=== PATIENT | female | born 1960 | race Caucasian/White ===

== ENCOUNTER 2019-11-29 22:10 | Inpatient (IN) | payer OTHER ==
--- NOTE | 2019-11-29 22:19 | ED ---
Abdominal Pain/Female - HPI Summary HPI Summary: 59 y/o presented to [facility] by [facility] complaining of abd pain that began this morning, for which she has seen another provider earlier today.She has had no vomiting and notes decreased urine output. She notes that she has been given morphine that has helped her pain. She drank PO contrast at 2100. Pt has Hx of heart palpitations and Afib. - History of Current Complaint Chief Complaint: EDAbdPain Stated Complaint: ABD PAIN PER EMS Time Seen by Provider: 11/29/19 22:15 Hx Obtained From: Patient, EMS Onset/Duration: Lasting Hours, Still Present Severity Currently: Moderate Pain Intensity: 5 Pain Scale Used: 0-10 Numeric Alleviating Factor(s): Other: - morphine Allergies/Adverse Reactions: Allergies Allergy/AdvReac Type Severity Reaction Status Date / Time Penicillins Allergy Anaphylatic Verified 11/29/19 22:16 Shock Home Medications: Home Medications Albuterol HFA INHALER* PRN 11/30/19 [History] Alendronate Sodium 70 mg PO WEEKLY 11/30/19 [History Confirmed 11/30/19] Aspirin 325 mg PO DAILY 11/30/19 [History Confirmed 11/30/19] Metoprolol Tartrate 12.5 mg PO BID 11/30/19 [History Confirmed 11/30/19] PMH/Surg Hx/FS Hx/Imm Hx Cardiovascular History: Reports: Hx Atrial Fibrillation, Other Cardiovascular Problems/Disorders - palpitations Sensory History: Denies: Hx Legally Blind, Hx Deafness Opthamlomology History: Denies: Hx Legally Blind EENT History: Denies: Hx Deafness Infectious Disease History: No Infectious Disease History: Denies: Traveled Outside the [place] in Last 30 Days - Family History Known Family History: Positive: Hypertension - sister Negative: Diabetes - Social History Occupation: Employed Full-time Alcohol Use: Daily Hx Tobacco Use: Yes Type: Cigarettes Review of Systems Positive: Abdominal Pain. Negative: Vomiting Positive: other - decreased urine output All Other Systems Reviewed And Are Negative: Yes Physical Exam - Summary Physical Exam Summary: Appearance: Cachectic, lying in bed comfortably, no acute distress Skin: Warm, dry, no obvious rash Eyes: sclera anicteric, no conjunctival pallor ENT: mucous membranes moist, pharynx appears normal Neck: Supple, nontender Respiratory: Clear to auscultation, no signs of respiratory distress Cardiovascular: Normal S1, S2. No murmurs. Normal distal pulses in tibial and radial bilaterally. Abdomen: Soft, diffuse tenderness with no guard or rebound, normal active bowel sounds present Musculoskeletal: Normal, Strength/ROM Intact Neurological: A&Ox3, awake and alert, mentation is normal, speech is fluent and appropriate Psychiatric: affect is normal, does not appear anxious or depressed Triage Information Reviewed: Yes Vital Signs On Initial Exam: Initial Vitals Temp Pulse Resp BP Pulse Ox 97.9 F 88 16 134/91 91 11/29/19 22:16 11/29/19 22:16 11/29/19 22:16 11/29/19 22:16 11/29/19 22:16 Vital Signs Reviewed: Yes Procedures - Sedation Patient Received Moderate/Deep Sedation with Procedure: No Diagnostics - Vital Signs Vital Signs Temp Pulse Resp BP Pulse Ox 11/29/19 22:16 97.9 F 88 16 134/91 91 - Laboratory Result Diagrams: 12/01/19 06:04 12/01/19 06:04 Lab Statement: Any lab studies that have been ordered have been reviewed, and results considered in the medical decision making process. - CT abd/pel CT Interpretation Completed By: Radiologist Summary of CT Findings: IMPRESSION: Cecal volvulus. This report was reviewed by the ED physician. Abdominal Pain Fem Course/Dx - Course Course Of Treatment: 59 y/o presented [facility] complaining of abd pain that began this morning, for which she has seen another provider earlier today.She has had no vomiting and notes decreased urine output. She notes that she has been given morphine that has helped her pain. Exam showed diffuse abdominal tenderness. CT abd/pel showed cacal volvulus. Pt case was discussed with Dr. Child and Dr. Vidal, who request the pt to be admitted for surgery. Pt was given 500mg IVPB Levaquin, 500mg IVPB Flagyl, and 2L IV NaCl. Pt case was discussed with Dr. Deal. Pt was diagnosed with cecal volvulus and admitted to [facility]. - Diagnoses Provider Diagnoses: Cecal volvulus - Provider Notifications Discussed Care Of Patient With: Kendall Child Time Discussed With Above Provider: 22:40 Instructed by Provider To: Other - Pt case was discussed with Dr. Child, who recommends a delayed CT scan and asks that the ED physician check in if there is a surgical diagnosis. At 0140 Dr. Vidal stated that the pt has a cecal volvulus and will need surgery. At 0144 Dr. Child asked that the hospitalist admit the pt. At 0350 Dr. Deal admitted the pt. Discharge ED - Sign-Out/Discharge Documenting (check all that apply): Patient Departure - admit - Discharge Plan Condition: Good Disposition: ADMITTED TO [facility] - Billing Disposition and Condition Condition: GOOD Disposition: Admitted to [facility] - Attestation Statements Document Initiated by Yanira: Yes Documenting Scribe: Dany Lopez Provider For Whom Yanira is Documenting (Include Credential): Jeferson Belcher MD Scribe Attestation: Dany Maradiaga scribed for Jeferson Belcher MD on 12/02/19 at 0109. Scribe Documentation Reviewed: Yes Provider Attestation: The documentation as recorded by the Dany mackey accurately reflects the service I personally performed and the decisions made by Jeferson ma MD Status of Scribe Document: Viewed
[2019-11-30] MEDS ORDERED: Morphine 4 MG/ML VIAL (1 ml) 4 MG/ML VIAL ONE (01:52)
[2019-11-30] MEDS ORDERED: Levofloxacin 500 MG IVPREMIX(* 500 MG/100 ML BAG IVPB ONE ×2 (01:58→03:27)
[2019-11-30] MEDS ORDERED: metroNIDAZOLE IV 500 MG/100ML* 500 MG/100 ML BAG IVPB ONE (01:58)
[2019-11-30] MEDS: NS 0.9% 1000 ML** 2,000 ML IV ONE ×2 (02:06→03:34)
[2019-11-30] MEDS: Morphine 4 MG/ML VIAL (1 ml) 4 MG/ML VIAL IV PRN ×3 (02:06→06:21)
--- NOTE | 2019-11-30 04:11 | HP ---
History of Present Illness - History of Present Illness Reason for Visit: Abdominal Pain for 1 day History of Present Illness: Aleida Alanis is a 59 y/o female with history of COPD, transferred from [facility] for acute onset of abdominal pain since this morning. She was about to go for work when the abdominal pain started, she described as diffuse abdominal pain, 5/10, constant. She had not been passing gas or stool since then , she denied vomiting or nausea or fever. She was in her usual health until today, she had regular bowel movement though she recalled she started to have a little bit diarrhea last night. In [place] and ED, she was given IV morphine and zofran. Also she was given IV Levaquin+flagyl. - Past Medical History Past Medical History: 1. COPD 2. Heart palpitation following with leasing associate Dr. Mcclellan in [place]. - Past Surgical History Past Surgical History: none - Past Family History Past Family History: Father at 70s, unknown medical history. Mother had open heart surgery at 60s. no other significant family history - Past Social History Past Social History: Current smoker, 1PPD since 17 years old. occasional Etoh use, a couple of beer daily basis, no ETOH overuse. No drug use. 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 Full code Medications: Albuterol HFA INHALER* PRN 11/30/19 [History] Alendronate Sodium 70 mg PO WEEKLY 11/30/19 [History Confirmed 11/30/19] Aspirin 325 mg PO DAILY 11/30/19 [History Confirmed 11/30/19] Metoprolol Tartrate 12.5 mg PO DAILY 11/30/19 [History Confirmed 11/30/19] Allergies/Adverse Reactions: Allergies Allergy/AdvReac Type Severity Reaction Status Date / Time Penicillins Allergy Anaphylatic Verified 11/29/19 22:16 Shock Review of Systems - Review of Systems Constitutional: Negative: Fever, Chills, Sweats, Weakness, Malaise, Other Eyes: Negative: Pain, Vision Change, Conjunctivae Inflammation, Eyelid Inflammation, Redness, Other ENT: Negative: Ear Pain, Ear Discharge, Nose Pain, Nose Discharge, Nose Congestion, Mouth Pain, Mouth Swelling, Throat Pain, Throat Swelling, Other Respiratory: Negative: Cough, Dry, Shortness of Breath, Hemoptysis, SOB with Excertion, Pleuritic Pain, Sputum, Wheezing Cardiovascular: Negative: Chest Pain, Palpitations, Orthopnea, Paroxysmal Noc. Dyspnea, Edema, Light Headedness, Other Gastrointestinal: Positive: Abdominal Pain Genitourinary: Negative: Dysuria, Frequency, Incontinence, Hematuria, Retention , Other Musculoskeletal: Negative: Neck Pain, Shoulder Pain, Arm Pain, Back Pain, Hand Pain, Leg Pain, Foot Pain, Other Skin: Negative: Rash, Lesions, Neftaly, Bruising, Other Neurological: Negative: Weakness, Numbness, Incoordination, Change in Speech, Confusion, Seizures, Other Exam Vital Signs: Vital Signs (72 hours) 11/29/19 11/30/19 11/30/19 22:16 00:16 00:36 Temperature 97.9 F Pulse Rate 88 78 78 Respiratory 16 20 17 Rate Blood Pressure 134/91 133/82 (mmHg) O2 Sat by Pulse 91 92 95 Oximetry 11/30/19 11/30/19 11/30/19 00:51 01:00 01:17 Temperature Pulse Rate 71 88 72 Respiratory 15 17 17 Rate Blood Pressure 127/72 136/68 (mmHg) O2 Sat by Pulse 96 97 97 Oximetry 11/30/19 11/30/19 11/30/19 01:47 02:00 02:06 Temperature Pulse Rate 82 88 Respiratory 16 19 22 Rate Blood Pressure 150/94 (mmHg) O2 Sat by Pulse 96 94 Oximetry 11/30/19 11/30/19 11/30/19 02:47 03:00 03:17 Temperature Pulse Rate 89 73 67 Respiratory 16 14 20 Rate Blood Pressure 132/67 131/87 (mmHg) O2 Sat by Pulse 98 98 98 Oximetry Exam: Appearance: comfortable, in moderate pain for abdomen Eyes: sclera anicteric, no conjunctival pallor ENT: mucous membranes moist, pharynx not erythematous, tonsils not enlarged, no exudates Respiratory: clear on auscultation, no signs of respiratory distress Cardiovascular: Normal S1, S2. No murmurs Abdomen: Soft, non tender, BS+ Extremity: pulse well palpated, no calf tenderness Skin: no rashes Neurological: A&Ox3, awake and alert, mentation is normal, speech is fluent and appropriate Psychiatric: affect is normal, does not appear anxious or depressed Additional Lab and Data: cbc: t 11.27, hB 14.2, pLT 268 BMP: Na 133, k 3.9, cO2 29, AG 11 Diagnostic Imaging: CTAP: cecal volvulus. markedly distended cecum filled with predominantly gas measuring ufp to 9cm in diameter. a twisting of the colonic wall and ileal colonic mesenteric vesslels in right lower quandrant of abdomen Assessment/Plan - Assessment/Plan Assessment: Aleida Alanis is a 59 y/o female with history of COPD, palpitation transferred from [facility] for acute onset of abdominal pain since this morning, found to have cecal volvulus in CTAP with mild leukocytosis. Surgical team was consulted in ED, we are admitting the patient for further management of cecal volvulus. Differential for the cause of volvulus including idiopathic, ischemic (less likely) bowel. Plan: 1. Cecal volvulus - NPO - IV fluid - zofran prn - if worsening pain, place ngt - pain control with morphine prn - empirical antibiotic coverage with iv cipro and flagyl in view of leukocytosis - surgical team was consulted in ED, will need early surgical intervention - According to RCRI, she scores 1 in operative risk, which indicates 30% of , FL or cardiac risk. She could proceed with surgery with the above mentioned risk. 2. COPD - not on exacerbation - continue current management 3. Tobacco use - put on nicotine patch - smoking cessation 4. DVT prophylaxis - start sc Lovenox this afternoon post op Attestation Documenting Resident: Vera Cerna Supervising Physician: Clare Deal Attestation: This service has been performed in part by a resident under the direction of a teaching physician.I, Clare Deal, performed the service, or was physically present during the critical, or martines portions of the service, furnished by the resident. I participated in the management of the patient.
[2019-11-30] MEDS ORDERED: Morphine INJ* 4 MG/ML 1 ML SYRINGE (NEW SYRINGE VERSION) IV PRN (07:59)
[2019-11-30] MEDS: Nicotine PATCH 21 MG/24 HR* PATCH TRANSDERM SCH (07:59)
[2019-11-30] MEDS ORDERED: NS 0.9% 1000 ML** 1,000 ML IV SCH (08:00)
[2019-11-30] MEDS ORDERED: Influenza VAC *QUAD* 2019-20* 0.5 ML SYRINGE IM ONE (09:00)
[2019-11-30] MEDS ORDERED: Albuterol 2.5 MG/3 ML NEB.SOL* (0.083%) INH PRN (09:46)
--- NOTE | 2019-11-30 09:48 | PN ---
Subjective Date of Service: 11/30/19 Interval History: Pt is feeling poorly currently. She still has not passed any gas. Her pain is coming back but not severe yet. 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 She uses O2 at bedtime, she does not know how many liters. Objective Active Medications: Enoxaparin Sodium (Lovenox(*)) 40 mg SUBCUT Q24H [facility] Ciprofloxacin/Dextrose (Cipro 400 Mg Ivpremix(*)) 400 mg in 200 mls @ 200 mls/ hr IVPB Q12H [facility]; Protocol Metronidazole/Sodium Chloride (Flagyl 250 Mg Ivpb*) 50 mls @ 50 mls/hr IVPB Q8H [facility] Sodium Chloride (Ns 0.9% 1000 Ml) 1,000 mls @ 100 mls/hr IV PER RATE [facility] Last Admin: 11/30/19 08:05 Dose: 100 mls/hr Influenza Virus Vaccine (Fluarix Quad 8958-5665 Syr) 0.5 ml IM .ONCE ONE Stop: 12/01/19 09:01 Morphine Sulfate (Morphine Inj (Syringe)*) 4 mg IV Q4H PRN PRN Reason: SEE COMMENTS Nicotine (Nicotine Patch 21 Mg/24 Hr*) 1 patch TRANSDERM DAILY@0800 [facility] Last Admin: 11/30/19 07:59 Dose: Not Given Pharmacy Profile Note (Nicotine Patch Removal Note*) 1 note FOLLOW UP 2100 [facility] Vital Signs - 8 hr 11/30/19 11/30/19 11/30/19 01:47 02:00 02:06 Temperature Pulse Rate 82 88 Respiratory 16 19 22 Rate Blood Pressure 150/94 (mmHg) O2 Sat by Pulse 96 94 Oximetry 11/30/19 11/30/19 11/30/19 02:47 03:00 03:17 Temperature Pulse Rate 89 73 67 Respiratory 16 14 20 Rate Blood Pressure 132/67 131/87 (mmHg) O2 Sat by Pulse 98 98 98 Oximetry 11/30/19 11/30/19 11/30/19 04:28 06:21 06:50 Temperature 97.6 F Pulse Rate 78 Respiratory 20 22 16 Rate Blood Pressure 149/77 (mmHg) O2 Sat by Pulse 95 Oximetry 11/30/19 11/30/19 07:59 08:01 Temperature 98.7 F Pulse Rate 83 Respiratory 18 15 Rate Blood Pressure 124/65 (mmHg) O2 Sat by Pulse 97 Oximetry Oxygen Devices in Use Now: Nasal Cannula - 4L-97% Appearance: Middle aged female who appears older than her stated age, sitting up in bed, NAD Eyes: No Scleral Icterus Ears/Nose/Mouth/Throat: Mucous Membranes Moist Respiratory: Symmetrical Chest Expansion and Respiratory Effort, Clear to Auscultation - diminished breath sounds throughout Cardiovascular: NL Sounds; No Murmurs; No JVD, RRR, No Edema Abdominal: - - BS+ soft, mildly distended, moderately tender Extremities: No Clubbing, Cyanosis Skin: No Nodules or Sclerosis Neurological: Alert and Oriented x 3 Additional Lab and Data: cbc: t 11.27, hB 14.2, pLT 268 BMP: Na 133, k 3.9, cO2 29, AG 11 Diagnostic Imaging: CTAP: cecal volvulus. markedly distended cecum filled with predominantly gas measuring ufp to 9cm in diameter. a twisting of the colonic wall and ileal colonic mesenteric vesslels in right lower quandrant of abdomen Assess/Plan/Problems-Billing Ms Alanis is a 59 yo F who has a h/o COPD and nocturnal O2 use who presented to [place] ER with c/o abdominal pain and no flatus and was found to have a cecal volvulus. - Patient Problems (1) Cecal volvulus Current Visit: Yes Status: Acute Code(s): K56.2 - VOLVULUS SNOMED Code(s) : 634193237 Comment: The patient has been seen by general surgery and plan is for the patient to go to the OR at noon today. Will continue prn morphine, zofran and IVF. In terms of cardiac risk the patient has an RCRI of 1 giving her a 6% 30- day risk of CO, cardiac arrest or . My biggest concern is that the patient has fairly significant COPD requiring supplemental O2 at night. She does become SOB with moderate activity. I mentioned that if she receives general anesthesia with intubation she may not be able to be extubated easily. She understands this risk. She is on low dose metoprolol tartrate twice daily (not sure the indication-possibly hypertension). Will change to IV metoprolol 2.5mg IV q6hr. Additionally she will be continued on cipro and flagyl for now. (2) COPD (chronic obstructive pulmonary disease) Current Visit: Yes Status: Acute Code(s): J44.9 - CHRONIC OBSTRUCTIVE PULMONARY DISEASE, UNSPECIFIED SNOMED Code(s): 25790421 Comment: Stable without exacerbation at this time. Will add prn nebs for SOB/ wheezing. (3) DVT prophylaxis Current Visit: Yes Status: Acute Code(s): Z29.9 - ENCOUNTER FOR PROPHYLACTIC MEASURES, UNSPECIFIED SNOMED Code(s): 519752138 Comment: on hold for OR- start lovenox when Ok'ed by surgery (4) Full code status Current Visit: Yes Status: Acute Code(s): Z78.9 - OTHER SPECIFIED HEALTH STATUS SNOMED Code(s): 387658621
[2019-11-30] MEDS: Metoprolol Tartrate IV* 1 MG/ML 5 ML VIAL IV SCH ×2 (10:20→18:38)
[2019-11-30] MEDS ORDERED: Ondansetron INJ* 2 MG/ML VIAL IV PRN ×2 (10:26→14:39)
--- NOTE | 2019-11-30 10:51 | CONSULT ---
Consult Consult: CC: abdominal pain HPI: 59 yo F with COPD, tachycardia, HTN presented to the [place] ED with a h/ o "stomach ache" that began at 4 am on 11/29. She had nausea, no vomiting. She has been having loose BMs. Pain became severe and when she went to the ED she required narcotics. She was transfered to [facility] after CT scan was done with concern for cecal volulus. She had repeat CT with contrast at [facility] and was indeed found to have cecal volvulus, was admitted to the Hospital service and surgical consult was requested. At present she reports ongoing abdominal pain. She does not report N/V. She does not recall last flatus. No F/C. 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 PE: Vital Signs Temp 97.6 F 11/30/19 06:50 Pulse 78 11/30/19 06:50 Resp 18 11/30/19 10:20 BP 149/77 11/30/19 06:50 Pulse Ox 95 11/30/19 06:50 Gen: NAD; thin F Abd: no scars; softly distended with mild tenderness; no peritoneal sx; no palpable hepatosplenomegaly. Ext: warm Lab from [place] reviewed. CT images reviewed. Impression: Cecal volvulus. Plan/recommendation: Right colectomy. Nature of the procedure, indications, risks, benefits, alternatives, option of no treatment discussed. We discussed expected hospitalization (3-5 days) and overall recovery (4-6 weeks). Risks explained including, not limited to: bleeding, infection, pain, scars, blood clots, pneumonia, respiratory failure, changes in bowel habits, and risk of anesthesia. All questions answered. She stated understanding and agreed to proceed. Keep NPO. Preop abx.
[2019-11-30] MEDS: metroNIDAZOLE IV 250 MG/50ML* 50 ML IVPB SCH ×2 (10:57→18:39)
[2019-11-30] MEDS ORDERED: Lidocaine 2% PF * 5 ML VIAL ONE (12:47)
[2019-11-30] MEDS ORDERED: Propofol* 10 MG/ML 20 ML BTL ONE (12:47)
[2019-11-30] MEDS ORDERED: Rocuronium* 10 MG/ML VIAL ONE (12:47)
[2019-11-30] MEDS ORDERED: Dexamethasone IV* 4 MG/ML 1 ML (4 MG) ONE (12:47)
[2019-11-30] MEDS ORDERED: Ondansetron INJ* 2 MG/ML VIAL ONE ×2 (12:47→15:53)
[2019-11-30] MEDS ORDERED: fentaNYL* 50 MCG/ML 5 ML VIAL (250 MCG VIAL) ONE (12:47)
[2019-11-30] MEDS ORDERED: KETAMINE HCL* 50 MG/ML 10 ML VIAL ONE (12:47)
[2019-11-30] MEDS ORDERED: Midazolam* 1 MG/ML 5 ML VIAL (5 MG) ONE (12:47)
[2019-11-30] MEDS ORDERED: Ketorolac INJ* 30 MG/ML 1 ML VIAL ONE (12:47)
[2019-11-30] MEDS ORDERED: Phenylephrine 10 MG/ML VIAL* 1 ML VIAL ONE (14:02)
[2019-11-30] MEDS ORDERED: Naloxone* 0.4 MG/ML 1 ML VIAL IV PRN (14:39)
[2019-11-30] MEDS ORDERED: Levalbuterol 0.63MG/3ML NEB* UNIT OF USE INH PRN (14:39)
[2019-11-30] MEDS ORDERED: HYDROmorphone INJ1* 1 MG/ML SYRINGE IV PRN (14:39)
[2019-11-30] MEDS ORDERED: fentaNYL* 50 MCG/ML 2 ML VIAL (100 MCG VIAL) IV PRN (14:39)
[2019-11-30] MEDS ORDERED: Bupivacaine 0.25% SDV* 30 ML ONE (14:40)
[2019-11-30] MEDS ORDERED: Levalbuterol HFA INHALER* 1 PUFF MDI ONE (14:41)
[2019-11-30] MEDS ORDERED: Sugammadex * 200 MG/2 ML VIAL IV PUSH ONE (14:47)
--- NOTE | 2019-11-30 15:21 | BRIEFOPN ---
Brief Operative/Procedure Note - Operation Details Pre-Op Diagnosis: Cecal volvulus Post-Op Diagnosis: Ceval volvulus Procedures: Right colectomy Surgeon(s)/Proceduralists: Dr. Child. Assist: HARIKA Maurer Anesthesia: GETA Estimated Blood Loss: <50cc Findings: As above Specimen(s)/Culture(s) Description: Right colon Complications: None
[2019-11-30] MEDS ORDERED: fentaNYL* 50 MCG/ML 2 ML VIAL (100 MCG VIAL) ONE (15:53)
[2019-11-30] MEDS ORDERED: Levalbuterol 0.63MG/3ML NEB* UNIT OF USE INH ONE (16:37)
[2019-11-30] MEDS: Enoxaparin(*) 40 MG/0.4 ML SYR SUBCUT SCH (18:51)
[2019-11-30] MEDS ORDERED: Acetaminophen TAB* 325 MG PO PRN (19:19)
[2019-11-30] MEDS ORDERED: oxyCODONE TAB* 5 MG TAB PO PRN (19:20)
[2019-11-30] MEDS ORDERED: LORazepam INJ* 2 MG/ML 1 ML VIAL IV PUSH SCH (20:00)
[2019-11-30] MEDS: Lactated Ringers 1000 ML Bag* 1,000 ML IV SCH (20:03)
[2019-11-30] MEDS: Nicotine Patch Removal NOTE FOLLOW UP SCH (21:36)
[2019-11-30] MEDS: Metoprolol Tartrate TAB* 25 MG PO SCH (21:44)
[2019-12-01] MEDS ORDERED: Ciprofloxacin 400MG IVPREMIX(* 400 MG/200 ML BAG IVPB SCH (03:30)
[2019-12-01 06:40] LABS: ABS Lymphocytes 1.1 10^3/ul (1.0-4.8); ABS Monocytes 0.8 10^3/ul (0-0.8); ABS Neutrophils 7.6 10^3/ul (1.5-7.7); Hematocrit 35 % (35-47); Hemoglobin 12.4 g/dL (12.0-16.0); Lymphocyte % 11.5 %; Mean Corpuscular HGB Conc 35 g/dL (31-36); Mean Corpuscular Hemoglobin 36 pg (27-31); Mean Corpuscular Volume 103 fL (80-97); Mean Platelet Volume 6.9 fL (7.4-10.4); Platelet Count 204 10^3/uL (150-450); Red Blood Count 3.44 10^6 /uL (3.70-4.87); Red Cell Distribution Width 13 % (10-15); White Blood Count 9.6 10^3/uL (3.5-10.8)
[2019-12-01 07:01] LABS: Albumin 3.3 g/dL (3.2-5.2); Albumin/Globulin Ratio 1.6 (1-3); BUN/Creatinine Ratio 11.1 (8-20); Calcium 7.9 mg/dL (8.6-10.3); EGFR African American 171.4 (>60); EGFR Non-African American 141.6 (>60); Globulin 2.1 g/dL (2-4); Potassium 3.6 mmol/L (3.5-5.0); Total Bilirubin 0.6 mg/dL (0.2-1.0); Total Protein 5.4 g/dL (6.4-8.9)
[2019-12-01] MEDS: Nicotine PATCH 21 MG/24 HR* PATCH TRANSDERM SCH (07:01)
[2019-12-01] MEDS: oxyCODONE/Acetamin 5/325 MG* TAB PO PRN ×4 (07:32→22:06)
--- NOTE | 2019-12-01 07:39 | PN ---
Subjective Date of Service: 12/01/19 Interval History: Pt is feeling ok but having more pain in her abdomen than she can tolerate without pain medication. She has not passed any gas/BM. She would like to get up to walk. She also feels like she needs to cough but is afraid to due to pain. Objective Active Medications: Acetaminophen (Tylenol Tab*) 650 mg PO Q4H PRN PRN Reason: MILD PAIN or TEMP > 100.4 Albuterol (Ventolin 2.5 Mg/3 Ml Neb.Alice*) 2.5 mg INH Q4H PRN PRN Reason: SOB/WHEEZING Enoxaparin Sodium (Lovenox(*)) 40 mg SUBCUT Q24H [facility] Last Admin: 11/30/19 18:51 Dose: 40 mg Folic Acid (Folvite Tab*) 1 mg PO DAILY [facility] Lactated Ringer's (Lactated Ringers 1000 Ml Bag*) 1,000 mls @ 83 mls/hr IV .PER RATE [facility] Last Admin: 11/30/19 20:03 Dose: 83 mls/hr Influenza Virus Vaccine (Fluarix Quad [id number] Syr) 0.5 ml IM .ONCE ONE Stop: 12/01/19 09:01 Lorazepam (Ativan Inj*) 0 - [address] mg IV PUSH .[facility] PROTOCOL [facility]; Protocol Metoprolol Tartrate (Lopressor Tab*) 12.5 mg PO Q12HR [facility] Last Admin: 11/30/19 21:44 Dose: 12.5 mg Morphine Sulfate (Morphine Inj (Syringe)*) 4 mg IV Q4H PRN PRN Reason: SEE COMMENTS Last Admin: 11/30/19 10:20 Dose: 4 mg Multivitamins/Minerals (Theragran/Minerals Tab*) 1 tab PO DAILY [facility] Nicotine (Nicotine Patch 21 Mg/24 Hr*) 1 patch TRANSDERM DAILY@0800 [facility] Last Admin: 12/01/19 07:01 Dose: Not Given Ondansetron HCl (Zofran Inj*) 4 mg IV Q6H PRN PRN Reason: NAUSEA/VOMITING Oxycodone HCl (Roxycodone Tab*) 5 mg PO Q4H PRN PRN Reason: PAIN - MODERATE Oxycodone/Acetaminophen (Percocet 5/325 Tab*) 2 tab PO Q4H PRN PRN Reason: PAIN - SEVERE Last Admin: 12/01/19 07:32 Dose: 2 tab Pharmacy Profile Note (Nicotine Patch Removal Note*) 1 note FOLLOW UP 2100 [facility] Last Admin: 11/30/19 21:36 Dose: Not Given Thiamine HCl (Vitamin B-1 Tab*) 100 mg PO DAILY [facility] Vital Signs - 8 hr 12/01/19 12/01/19 12/01/19 00:44 00:52 00:53 Temperature 98.3 F Pulse Rate 55 57 Respiratory 16 14 14 Rate Blood Pressure 106/59 (mmHg) O2 Sat by Pulse 95 96 Oximetry 12/01/19 12/01/19 12/01/19 03:03 05:54 05:56 Temperature 98.4 F 97.9 F Pulse Rate 69 60 Respiratory 16 16 16 Rate Blood Pressure 118/68 124/57 (mmHg) O2 Sat by Pulse 92 97 Oximetry 12/01/19 12/01/19 12/01/19 07:19 07:25 07:32 Temperature Pulse Rate 99 72 Respiratory 16 18 Rate Blood Pressure 107/50 (mmHg) O2 Sat by Pulse 83 92 Oximetry Oxygen Devices in Use Now: Nasal Cannula - 3L-92% Appearance: Middle aged female sitting up in bed, NAD Eyes: No Scleral Icterus Ears/Nose/Mouth/Throat: Mucous Membranes Moist Respiratory: Symmetrical Chest Expansion and Respiratory Effort, - - diminished breath sounds throughout with few scattered wheezes Cardiovascular: NL Sounds; No Murmurs; No JVD, RRR, No Edema Abdominal: - - BS+ soft, mildly distended, moderate tenderness Extremities: No Clubbing, Cyanosis Skin: No Nodules or Sclerosis Neurological: Alert and Oriented x 3 Result Diagrams: 12/01/19 06:04 12/01/19 06:04 Additional Lab and Data: cbc: t 11.27, hB 14.2, pLT 268 BMP: Na 133, k 3.9, cO2 29, AG 11 Diagnostic Imaging: CTAP: cecal volvulus. markedly distended cecum filled with predominantly gas measuring ufp to 9cm in diameter. a twisting of the colonic wall and ileal colonic mesenteric vesslels in right lower quandrant of abdomen Assess/Plan/Problems-Billing Ms Alanis is a 59 yo F who has a h/o COPD and nocturnal O2 use who presented to [place] ER with c/o abdominal pain and no flatus and was found to have a cecal volvulus. - Patient Problems (1) Cecal volvulus Current Visit: Yes Status: Acute Code(s): K56.2 - VOLVULUS SNOMED Code(s) : 407561574 Comment: Pt is POD#1 from a R hemicolectomy with end to end anastamosis. She has yet to pass any gas. Will continue clear liquid diet per surgery. Pt will try to use narcotic pain medication sparingly but take it as needed so that she is more comfortable to walk and cough as needed. Further management per surgery. (2) COPD (chronic obstructive pulmonary disease) Current Visit: Yes Status: Acute Code(s): J44.9 - CHRONIC OBSTRUCTIVE PULMONARY DISEASE, UNSPECIFIED SNOMED Code(s): 45852959 Comment: Stable without exacerbation at this time. Pt has mild wheezing on exam now. Will ask for neb to be given. (3) DVT prophylaxis Current Visit: Yes Status: Acute Code(s): Z29.9 - ENCOUNTER FOR PROPHYLACTIC MEASURES, UNSPECIFIED SNOMED Code(s): 342624188 Comment: lovenox started last evening (4) Full code status Current Visit: Yes Status: Acute Code(s): Z78.9 - OTHER SPECIFIED HEALTH STATUS SNOMED Code(s): 403635566
[2019-12-01] MEDS: Lactated Ringers 1000 ML Bag* 1,000 ML IV SCH ×4 (08:39→21:11)
[2019-12-01] MEDS: Thiamine TAB* 100 MG TAB PO SCH (08:50)
[2019-12-01] MEDS: Multivitamins/Minerals TAB PO SCH (08:50)
[2019-12-01] MEDS: Folic Acid TAB* 1 MG PO SCH (08:50)
[2019-12-01] MEDS: Metoprolol Tartrate TAB* 25 MG PO SCH ×2 (08:50→21:36)
[2019-12-01] MEDS ORDERED: Influenza VAC *QUAD* 2019-20* 0.5 ML SYRINGE IM ONE (09:00)
--- NOTE | 2019-12-01 09:13 | PN ---
Progress Note - Progress Note Date of Service: 12/01/19 SOAP: Subjective: Pain controlled. Hurts to cough. Feeling better. No N/V/flatus. Objective: Vital Signs Temp 97.9 F 12/01/19 05:54 Pulse 76 12/01/19 08:19 Resp 18 12/01/19 07:39 BP 121/54 12/01/19 08:19 Pulse Ox 88 12/01/19 08:19 Gen: NAD; sitting up in bed Abd: dressings dry and intact with blood staining; ND; firm and mod tender to palpation. Intake & Output 11/30/19 12/01/19 12/01/19 18:59 06:59 18:59 Intake Total 2300 1080 1551 Output Total 300 650 0 Balance 2000 430 1551 Weight 95 lb Intake: IV Fluids 2300 981 LR 2300 981 Oral 0 1080 570 Output: Urine 300 0 0 Hope 650 Laboratory Results - last 24 hr 12/01/19 12/01/19 12/01/19 06:04 06:04 06:04 WBC 9.6 RBC 3.44 L Hgb 12.4 Hct 35 MCV 103 H MCH 36 H MCHC 35 RDW 13 Plt Count 204 MPV 6.9 L Neut % (Auto) 79.3 Lymph % (Auto) 11.5 [place] % (Auto) 8.8 Eos % (Auto) 0.0 Baso % (Auto) 0.4 Absolute Neuts (auto) 7.6 Absolute Lymphs (auto) 1.1 Absolute Monos (auto) 0.8 Absolute Eos (auto) 0.0 Absolute Basos (auto) 0.0 Absolute Nucleated RBC 0.0 Nucleated RBC % 0.0 Sodium 133 L Potassium 3.6 Chloride 98 L Carbon Dioxide 29 Anion Gap 6 BUN 5 L Creatinine 0.45 L Est GFR ( Amer) 171.4 Est GFR (Non-Af Amer) 141.6 BUN/Creatinine Ratio 11.1 Glucose 112 H Lactic Acid 1.0 Calcium 7.9 L Total Bilirubin 0.60 AST 26 ALT 25 Alkaline Phosphatase 41 Total Protein 5.4 L Albumin 3.3 Globulin 2.1 Albumin/Globulin Ratio 1.6 Assessment: POD#1 s/p R colectomy for cecal volvulus. Doing well. Plan: Clears to full liquids. IVF bolus and increase rate for low u/o. Can d/c hope. Amb/pulm toilet. DVT proph.
[2019-12-01] MEDS: Enoxaparin(*) 40 MG/0.4 ML SYR SUBCUT SCH (17:11)
[2019-12-01] MEDS ORDERED: diPHENhydraMINE PO* 50 MG PO ONE (20:53)
[2019-12-01] MEDS: Nicotine Patch Removal NOTE FOLLOW UP SCH (21:37)
[2019-12-02] MEDS: oxyCODONE/Acetamin 5/325 MG* TAB PO PRN ×4 (02:40→17:37)
[2019-12-02] MEDS: Lactated Ringers 1000 ML Bag* 1,000 ML IV SCH (05:08)
[2019-12-02 07:25] LABS: BUN/Creatinine Ratio 8.7 (8-20); Calcium 7.7 mg/dL (8.6-10.3); EGFR African American 167.1 (>60); EGFR Non-African American 138.1 (>60); Potassium 3.8 mmol/L (3.5-5.0)
[2019-12-02] MEDS: Albuterol HFA INHALER* 8 gm MDI INH PRN ×2 (07:51→16:51)
[2019-12-02] MEDS: Nicotine PATCH 21 MG/24 HR* PATCH TRANSDERM SCH (07:52)
[2019-12-02] MEDS: Metoprolol Tartrate TAB* 25 MG PO SCH ×2 (07:53→18:16)
[2019-12-02] MEDS: Multivitamins/Minerals TAB PO SCH (07:53)
[2019-12-02] MEDS: Folic Acid TAB* 1 MG PO SCH (07:53)
[2019-12-02] MEDS: Thiamine TAB* 100 MG TAB PO SCH (07:53)
--- NOTE | 2019-12-02 12:49 | PN ---
Progress Note - Progress Note Date of Service: 12/02/19 SOAP: Subjective: NAD Comfortable in bed has ambulated in halls, tolerating fulls, + Flatus and BM [] Objective: Vital Signs Temp 97.9 F 12/02/19 11:27 Pulse 70 12/02/19 11:27 Resp 16 12/02/19 11:27 BP 121/80 12/02/19 11:27 Pulse Ox 91 12/02/19 11:27 Intake & Output 12/01/19 12/02/19 12/02/19 18:59 06:59 18:59 Intake Total 2891 2851 560 Output Total 200 680 300 Balance 2691 2171 260 Intake: IV Fluids 1021 1971 560 LR 1021 1971 560 IVPB 500 LR 500 Oral 1370 880 Output: Urine 0 680 300 Padilla 200 Other: # Bowel Movements 0 PEX GEN: NAD Chest: CTA CVS: RRR Abd: Incision C/D/I josé luis in place Incisional tendernes Ext: calves soft non tender B/L [] Assessment: POD 2 S/P Right Hemicolectomy for a cecal volvulus. Reports feeling better than yesterday,tolerating diet [] Plan: Continue Ensure Enlive TID, ^ diet to Regular, encourage deep breathing, IS, SCD's, Hep Lock IV. encouraged decreasing narcotic use D/C planning. Pt also seen and examined by Dr Child []
--- NOTE | 2019-12-02 15:30 | PN ---
Subjective Date of Service: 12/02/19 Interval History: Patient sitting up in bed, no acute distress. Denies pain, nausea, or vomiting. Passing flatus. Has had a loose stool. Did not feel comfortable with going home today because she would be home alone all day with her at work. Family History: Unchanged from Admission Social History: Unchanged from Admission Past Medical History: Unchanged from Admission Objective Active Medications: Acetaminophen (Tylenol Tab*) 650 mg PO Q4H PRN PRN Reason: MILD PAIN or TEMP > 100.4 Albuterol (Ventolin Hfa Inhaler*) 1 puff INH Q4H PRN PRN Reason: SOB/WHEEZING Last Admin: 12/02/19 07:51 Dose: 1 puff Enoxaparin Sodium (Lovenox(*)) 40 mg SUBCUT Q24H [facility] Last Admin: 12/01/19 17:11 Dose: 40 mg Folic Acid (Folvite Tab*) 1 mg PO DAILY [facility] Last Admin: 12/02/19 07:53 Dose: 1 mg Lorazepam (Ativan Inj*) 0 - 3 mg IV PUSH .PER [facility] PROTOCOL [facility]; Protocol Metoprolol Tartrate (Lopressor Tab*) 12.5 mg PO Q12HR [facility] Last Admin: 12/02/19 07:53 Dose: 12.5 mg Morphine Sulfate (Morphine Inj (Syringe)*) 4 mg IV Q4H PRN PRN Reason: SEE COMMENTS Last Admin: 11/30/19 10:20 Dose: 4 mg Multivitamins/Minerals (Theragran/Minerals Tab*) 1 tab PO DAILY [facility] Last Admin: 12/02/19 07:53 Dose: 1 tab Nicotine (Nicotine Patch 21 Mg/24 Hr*) 1 patch TRANSDERM DAILY@0800 [facility] Last Admin: 12/02/19 07:52 Dose: Not Given Ondansetron HCl (Zofran Inj*) 4 mg IV Q6H PRN PRN Reason: NAUSEA/VOMITING Oxycodone HCl (Roxycodone Tab*) 5 mg PO Q4H PRN PRN Reason: PAIN - MODERATE Oxycodone/Acetaminophen (Percocet 5/325 Tab*) 2 tab PO Q4H PRN PRN Reason: PAIN - SEVERE Last Admin: 12/02/19 13:31 Dose: 2 tab Pharmacy Profile Note (Nicotine Patch Removal Note*) 1 note FOLLOW UP 2099 [facility] Last Admin: 12/01/19 21:37 Dose: Not Given Thiamine HCl (Vitamin B-1 Tab*) 100 mg PO DAILY [facility] Last Admin: 12/02/19 07:53 Dose: 100 mg Vital Signs - 8 hr 12/02/19 12/02/19 12/02/19 07:45 07:52 08:00 Temperature 98.2 F Pulse Rate 77 Respiratory 16 18 18 Rate Blood Pressure 131/72 (mmHg) O2 Sat by Pulse 90 Oximetry 12/02/19 12/02/19 12/02/19 09:38 11:27 13:31 Temperature 97.9 F Pulse Rate 70 Respiratory 18 16 18 Rate Blood Pressure 121/80 (mmHg) O2 Sat by Pulse 91 Oximetry 12/02/19 15:23 Temperature Pulse Rate Respiratory 18 Rate Blood Pressure (mmHg) O2 Sat by Pulse Oximetry Oxygen Devices in Use Now: None Appearance: Well developed woman seen sitting up in bed, no acute distress. Eyes: No Scleral Icterus, PERRLA Ears/Nose/Mouth/Throat: NL Teeth, Lips, Gums, Clear Oropharnyx, Mucous Membranes Moist Neck: NL Appearance and Movements; NL JVP, Trachea Midline Respiratory: Symmetrical Chest Expansion and Respiratory Effort, Clear to Auscultation Cardiovascular: NL Sounds; No Murmurs; No JVD, RRR, No Edema Abdominal: NL Sounds; No Tenderness; No Distention Lymphatic: No Cervical Adenopathy Extremities: No Edema, No Clubbing, Cyanosis Skin: No Rash or Ulcers, No Nodules or Sclerosis Neurological: Alert and Oriented x 3 Lines/Tubes/Other Access: Clean, Dry and Intact Peripheral IV - Nutrition: Malnutrition Diagnosis/Plan Malnutrition Assessment by Registered Dietitian: Malnutrition Assessment Clinical Characteristics Acute,Severe Malnutrition Assessment: - moderate subcutaneous fat loss overlying ribs Criteria - moderate temporal wasting - estimated po intake <50% of est EEE x > 5 days Malnutrition Assessment: 1. monitor tolerance to post-op diet Interventions progression (s/p right colectomy 11/30) 2. pt requested to try Ensure Enlive ( chocolate flavor); will send 2x/day (more often if desired) 3. encourage high-calorie, high-protein foods as diet is advanced 4. replete electrolytes and fluids as needed, per MD orders Malnutrition Assessment: Goals 1. pt will tolerate post-op diet progression without adverse GI effects 2. adequate po intake to replete lost wt and lean body mass, ultimately leading to gradual wt gain 10-20# 3. maintain serum electrolytes levels WNL 4. achieve and maintain regulated bowel pattern without c/o constipation (or diarrhea) Result Diagrams: 12/01/19 06:04 12/02/19 06:59 Additional Lab and Data: cbc: t 11.27, hB 14.2, pLT 268 BMP: Na 133, k 3.9, cO2 29, AG 11 Diagnostic Imaging: CTAP: cecal volvulus. markedly distended cecum filled with predominantly gas measuring ufp to 9cm in diameter. a twisting of the colonic wall and ileal colonic mesenteric vesslels in right lower quandrant of abdomen Assess/Plan/Problems-Billing Ms Alanis is a 59 yo F who has a h/o COPD and nocturnal O2 use who presented to [place] [facility] with c/o abdominal pain and no flatus and was found to have a cecal volvulus. S/P Right hemicolectomy. - Patient Problems (1) Cecal volvulus Current Visit: Yes Status: Acute Code(s): K56.2 - VOLVULUS SNOMED Code(s) : 127871397 Comment: Pt is POD#2 from a R hemicolectomy with end to end anastamosis. Positive for flatus. Has had a loose bowel movement. Tolerating regular diet. Pain well controlled, denies nausea/vomiting. (2) COPD (chronic obstructive pulmonary disease) Current Visit: Yes Status: Acute Code(s): J44.9 - CHRONIC OBSTRUCTIVE PULMONARY DISEASE, UNSPECIFIED SNOMED Code(s): 81123101 Comment: Stable without exacerbation at this time. Continue PRN nebs. (3) ETOH abuse Current Visit: Yes Status: Acute Code(s): F10.10 - ALCOHOL ABUSE, UNCOMPLICATED SNOMED Code(s): 30354782 Comment: -Has not been scoring on the [place] protocol. Will discontinue at this time. (4) Nicotine dependence Current Visit: Yes Status: Acute Code(s): F17.200 - NICOTINE DEPENDENCE, UNSPECIFIED, UNCOMPLICATED SNOMED Code(s): 67507878 Comment: -Declines nicotine patch because she doesn't have any cravings. Encouraged that she continue to not smoke upon discharge. (5) DVT prophylaxis Current Visit: Yes Status: Acute Code(s): Z29.9 - ENCOUNTER FOR PROPHYLACTIC MEASURES, UNSPECIFIED SNOMED Code(s): 263948487 Comment: -Continue lovenox. (6) Full code status Current Visit: Yes Status: Acute Code(s): Z78.9 - OTHER SPECIFIED HEALTH STATUS SNOMED Code(s): 213859626 Status and Disposition: Condition: Stable Disposition: Admit inpatient to [facility]. Attending: Regla Goyal
[2019-12-02] MEDS: Enoxaparin(*) 40 MG/0.4 ML SYR SUBCUT SCH (16:51)
[2019-12-02] MEDS: Nicotine Patch Removal NOTE FOLLOW UP SCH (19:56)
[2019-12-03] MEDS: oxyCODONE/Acetamin 5/325 MG* TAB PO PRN ×5 (00:30→17:13)
[2019-12-03] MEDS: Metoprolol Tartrate TAB* 25 MG PO SCH (04:59)
[2019-12-03] MEDS: Nicotine PATCH 21 MG/24 HR* PATCH TRANSDERM SCH (08:36)
[2019-12-03] MEDS: Multivitamins/Minerals TAB PO SCH (08:52)
[2019-12-03] MEDS: Folic Acid TAB* 1 MG PO SCH (08:52)
[2019-12-03] MEDS: Thiamine TAB* 100 MG TAB PO SCH (08:52)
--- NOTE | 2019-12-03 11:48 | PN ---
Progress Note - Progress Note Date of Service: 12/03/19 Note: Patient doing well this morning. Eating well. Having bowel movements. Has been ambulating in hallways. Mild pain at incision site. She feels edema in legs improving. Vital Signs - 12 hr Temp Pulse Resp BP Pulse Ox 12/03/19 11:04 98.1 F 68 17 104/57 90 12/03/19 10:51 16 12/03/19 08:51 16 12/03/19 08:40 16 12/03/19 07:41 97.8 F 69 15 127/54 89 12/03/19 07:02 16 12/03/19 05:00 16 12/03/19 03:25 97.4 F 62 14 119/65 92 12/03/19 03:18 12 12/03/19 00:30 14 12/03/19 00:11 97.7 F 72 14 128/74 93 General: NAD CV: RRR Chest: Clear to auscultation Abdomen: Soft, minimal tenderness, nondistended. Incision c/d/i with josé luis. Extremities: Minimal pedal edema. Skin: warm and dry Neuro: alert, oriented x3 A&P 59F with cecal volvulus s/p right hemicolectomy. POD 3. Doing well -Regular diet -Percocet as needed for pain -D/c to home today.
[2019-12-03 15:16] VITALS: BP 157/71
[2019-12-03] MEDS: Enoxaparin(*) 40 MG/0.4 ML SYR SUBCUT SCH (17:13)
--- NOTE | 2019-12-13 12:16 | DS ---
ADMIT DATE: 11/29/19 DISCHARGE DATE: 12/03/19 REASON FOR ADMISSION: Cecal volvulus CONDITION AT DISCHARGE: Stable PERTINENT PHYSICAL FINDINGS: Abdomen appropriately tender around incision. Nondistended and soft. Incision c/d/i. PROCEDURE: Right hemicolectomy 11/30/19 HOSPITAL COURSE: Aleida Alanis is a 59 year-old who presented to [facility] with 1- day history of abdominal pain. CT abdomen/pelvis found cecal volvulus. She was admitted to the hospitalist service. On 11/30, she was brought to the OR for right hemicolectomy by Dr Child. Post-operatively, she did well. She was started on clear liquids by POD 1 and tolerating regular diet by POD 2. Pain was well controlled. She was ambulating in the hallways without difficulty. On POD 3, she was medically ready for discharge. DISPOSITION: Home DISCHARGE INSTRUCTIONS: Avoid heavy lifting until cleared by surgeon. May shower. No baths or swimming until cleared by surgeon. Keep incision clean and dry. Follow up with Dr Child in 1 week.
--- NOTE | 2019-12-13 18:51 | OP ---
CC: Margo EstevesJessica Brown, * DATE OF OPERATION: 11/30/19 - ROOM #340 DATE OF : 56 SURGEON: Kendall Child MD [employer]MAN: HARIKA Gusman ANESTHESIA: General endotracheal. PRE-OP DIAGNOSIS: Cecal volvulus. POST-OP DIAGNOSIS: Cecal volvulus. OPERATIVE PROCEDURE: Right colectomy. ESTIMATED BLOOD LOSS: Less than 50 mL. IV FLUIDS: Crystalloid. SPECIMEN: Right colon. DRAINS: None. COMPLICATIONS: None. COUNTS: Instrument, needle and sponge counts correct. OPERATIVE FINDINGS: Cecal volvulus. DESCRIPTION OF PROCEDURE: The patient was brought to the operating room and placed on the table supine. Sequential compression devices were placed on both lower extremities. General anesthesia was administered. A Padilla catheter was placed. The patient was positioned and padded approximately. She was prepped and draped in usual sterile fashion. She received approximate intravenous antibiotics. A time- out was performed. The entry to the abdomen was through a midline laparotomy incision extending around the left side of the umbilicus. An Blue retractor was placed and utilized for the duration of the case. After entering the peritoneal cavity, distended large bowel was identified. The bowel was exteriorized and the patient was noted to have a volvulus of the cecum. This was untwisted and then inspection revealed that this appeared to be a chronic issue. There was no acute inflammatory changes. No complete obstruction nor was there any apparent compromise of the bowel. Exploration of the abdomen was performed. Liver appeared normal on palpation, as did the gallbladder. Stomach was normal on palpation. Small bowel was run from the ileocecal valve proximally to ligament of Treitz and back again. No abnormalities were identified. The colon was palpated from the cecum to the ascending across the transverse and down the descending to the sigmoid and rectum. Again, no abnormalities noted other than the laxity of the right colon and the tendency for the cecum to volvulize. It was decided that right colectomy would be performed. The mobilization of the cecum and ascending colon was performed using combination of sharp and blunt dissection and a LigaSure. After identifying the middle colic vessels, the distal margin of resection was taken within the area of the right branch of the middle colic vessel. Window was created in the mesentery and the bowel was divided with a JENNY blue stapler. Proximally to the ileocecal valve by approximately 5 to 7 cm, a window was created in the terminal ileum and the terminal ileum divided with a JENNY stapler with a blue stapler cartridge. The intervening mesentery was then divided using a combination of a LigaSure as well as dividing between clamps and ligating with 2-0 Vicryl suture ligatures. After the right colon was freed, it was handed off as specimen. Continuity of the bowel was restored by means of a [id number] functional end-to-end ileocolic anastomosis using the JENNY 60 blue stapler with the TA 60 blue stapler to close the common enterotomy. The mesenteric defect was closed with interrupted 3-0 silk sutures. The bowel was returned to the abdominal cavity. Lavage with warm saline was performed. At this point, the Blue retractor was removed and the fascia was closed with running #1 PDS. The subcutaneous tissues were irrigated and the wound closed with josé luis. The wound was dressed with Coverlet. The patient tolerated this procedure well. She was extubated uneventfully. She was transferred to the recovery room in stable condition. [id number]/[facility] #: [id number] KELI
== END 2019-12-03 17:20 | disposition home or self-care (01) | DRG 221 ==
LOC: ED 22:10 → SSU 11-30 03:50
PROVIDERS: ADMIT Internal Medicine; ATTEND Surgery Surgical Critical Care
PROC: 0DTF0ZZ Resection of Right Large Intestine, Open Approach (ICD-10-PCS; principal; 2019-11-30 15:00)
DX: K56.2 Volvulus (principal); R64 Cachexia; Z68.1 Body mass index [BMI] 19.9 or less, adult; I48.91 Unspecified atrial fibrillation; J44.9 Chronic obstructive pulmonary disease, unspecified; F17.210 Nicotine dependence, cigarettes, uncomplicated; I10 Essential (primary) hypertension; F10.10 Alcohol abuse, uncomplicated; Y90.9 Presence of alcohol in blood, level not specified; Z23 Encounter for immunization; Z88.0 Allergy status to penicillin
CPT/HCPCS: 36415; 74176; 80048; 80053; 83605; 85025; 88307; 90686; 93005; 99284; A9270-GY; C1776; J0744; J1100; J1650; J1885; J1956; J2250; J2270; J2405; J2704; J3010; J3490

== ENCOUNTER 2021-09-09 00:43 | Inpatient (IN) ==
[2021-09-09] MEDS ORDERED: Albuterol HFA INHALER 8 gm MDI INH PRN (01:48)
[2021-09-09] MEDS ORDERED: Ondansetron 4 mg VIAL 2 MG/ML 2 ml VIAL IV PRN (01:56)
[2021-09-09] MEDS ORDERED: Heparin 5000 UNITS/ML 1 mL VIAL SUBCUT ONE (02:05)
[2021-09-09] MEDS: Acetaminophen IV 1 GM/100ML 100 ML IV SCH ×3 (02:23→11:53)
[2021-09-09 02:40] LABS: ABS Lymphocytes 1.4 10^3/ul (1.0-4.8); ABS Monocytes 0.6 10^3/ul (0-0.8); ABS Neutrophils 7.3 10^3/ul (1.5-7.7); Eosinophil % 0.1 %; Hematocrit 36 % (35-47); Hemoglobin 12.2 g/dL (12.0-16.0); Lymphocyte % 14.9 %; Mean Corpuscular HGB Conc 34 g/dL (31-36); Mean Corpuscular Hemoglobin 36 pg (27-31); Mean Corpuscular Volume 103 fL (80-97); Mean Platelet Volume 6.7 fL (7.4-10.4); Platelet Count 182 10^3/uL (150-450); Red Blood Count 3.45 10^6 /uL (3.70-4.87); Red Cell Distribution Width 13 % (10-15); White Blood Count 9.3 10^3/uL (3.5-10.8)
[2021-09-09 02:50] LABS: Activated Partial Thrombo Time 28.3 seconds (26.0-38.0); INR 1.2 (0.86-1.15)
[2021-09-09 02:53] LABS: Rapid COVID-19 Molecular Undetected (Undetected)
[2021-09-09 02:54] LABS: Albumin 3.9 g/dL (3.2-5.2); Albumin/Globulin Ratio 1.8 (1-3); Calcium 8.6 mg/dL (8.6-10.3); Globulin 2.2 g/dL (2-4); Magnesium 1.6 mg/dL (1.9-2.7); Potassium 3.7 mmol/L (3.5-5.0); Total Bilirubin 0.5 mg/dL (0.2-1.0); Total Protein 6.1 g/dL (6.4-8.9)
[2021-09-09] MEDS ORDERED: Nicotine Lozenge mini 2 MG LOZNG.MINI MT PRN (05:41)
[2021-09-09] MEDS: HYDROmorphone 0.5 MG/0.5 ML SYRINGE IV SLOW PU PRN ×4 (08:30→20:53)
[2021-09-09] MEDS ORDERED: Magnesium Sulf 4 GM/100 ML IV 4,000 MG/100 ML BAG IVPB ONE (08:39)
[2021-09-09] MEDS ORDERED: Flu vaccine *QUAD* 2021-22* 0.5 ML SYRINGE IM ONE (09:00)
[2021-09-09] MEDS: Cholecalciferol (VIT D3) 1,000 unit TAB PO SCH (11:53)
[2021-09-09] MEDS: Nicotine PATCH 14 MG/24 HR PATCH TRANSDERM SCH (12:07)
[2021-09-10 00:58] LABS: Urine Appearance Cloudy; Urine Bilirubin Negative (Negative); Urine Blood Negative (Negative); Urine Color Yellow; Urine Glucose Negative (Negative); Urine Ketones Negative (Negative); Urine Nitrite Negative (Negative); Urine Protein Negative (Negative); Urine Specific Gravity 1.015 (1.002-1.030); Urine Urobilinogen Negative (Negative)
[2021-09-10 01:21] LABS: Urine Bacteria Absent (Absent); Urine Red Blood Cell Trace(0-2/hpf) (Absent); Urine Squamous Epithelial Cell Present (Absent); Urine White Blood Cell 1+(6-10/hpf) (Absent)
[2021-09-10] MEDS: HYDROmorphone 0.5 MG/0.5 ML SYRINGE IV SLOW PU PRN ×3 (01:22→10:19)
[2021-09-10 06:48] LABS: Hematocrit 37 % (35-47); Mean Corpuscular HGB Conc 35 g/dL (31-36); Mean Corpuscular Hemoglobin 36 pg (27-31); Mean Corpuscular Volume 104 fL (80-97); Mean Platelet Volume 7.1 fL (7.4-10.4); Platelet Count 186 10^3/uL (150-450); Red Blood Count 3.58 10^6 /uL (3.70-4.87); Red Cell Distribution Width 12 % (10-15); White Blood Count 7.6 10^3/uL (3.5-10.8)
[2021-09-10 06:54] LABS: INR 1.19 (0.86-1.15)
[2021-09-10 07:07] LABS: Calcium 8.6 mg/dL (8.6-10.3); Potassium 3.9 mmol/L (3.5-5.0)
[2021-09-10] MEDS: Cholecalciferol (VIT D3) 1,000 unit TAB PO SCH (09:34)
[2021-09-10] MEDS: Nicotine PATCH 14 MG/24 HR PATCH TRANSDERM SCH (10:22)
[2021-09-10] MEDS ORDERED: Senna TAB 8.6 mg TAB PO PRN (11:06)
[2021-09-10] MEDS ORDERED: Magnesium Hydroxide LIQ 30 ML UDC PO PRN (11:06)
[2021-09-10] MEDS ORDERED: Polyethylene Glycol 3350 17 GM PACKET PO PRN (11:06)
[2021-09-10] MEDS ORDERED: Bupivacaine 0.5% W/EPI SDV 10 ML VIAL INJ ONE (14:07)
[2021-09-10] MEDS ORDERED: Lidocaine 2% PF 5 ML VIAL ONE (14:17)
[2021-09-10] MEDS ORDERED: Propofol 10 MG/ML 20 ML BTL ONE (14:17)
[2021-09-10] MEDS ORDERED: Dexamethasone IV 4 MG/ML VIAL 1 ml VIAL ONE (14:17)
[2021-09-10] MEDS ORDERED: Ondansetron 4 mg VIAL 2 MG/ML 2 ml VIAL ONE (14:17)
[2021-09-10] MEDS ORDERED: fentaNYL 100 mcg/2 ml 50 MCG/ML VIAL ONE (14:18)
[2021-09-10] MEDS ORDERED: Midazolam 5 mg/5 ml VIAL 1 mg/ml 5 ml VIAL (5 mg) ONE (14:18)
[2021-09-10] MEDS ORDERED: Ketamine HCL 50 mg/ml 10 ml VIAL (500 MG) ONE (14:18)
[2021-09-10] MEDS ORDERED: Phenylephrine 40 mcg/mL 10mL (400mcg) SYRINGE ONE (14:52)
[2021-09-10] MEDS ORDERED: Vancomycin 750 MG in NS 0.9% 250 ML IVPB ONE (15:00)
[2021-09-10] MEDS ORDERED: EPHEDrine (Pressors) 50 MG/ML VIAL ONE (15:25)
[2021-09-10] MEDS ORDERED: Ondansetron 4 mg VIAL 2 MG/ML 2 ml VIAL IV PRN (16:27)
[2021-09-10] MEDS ORDERED: Naloxone 0.4 mg VIAL 0.4 mg/ml 1 ml VIAL IV PRN (16:27)
[2021-09-10] MEDS ORDERED: Levalbuterol 0.63MG/3ML NEB UNIT OF USE INH PRN (16:27)
[2021-09-10] MEDS ORDERED: HYDROmorphone 1 MG/1 ML SYRINGE IV PRN (16:27)
[2021-09-10] MEDS ORDERED: fentaNYL 100 mcg/2 ml 50 MCG/ML VIAL IV PRN (16:27)
[2021-09-10 18:26] LABS: Hematocrit 33 % (35-47); Hemoglobin 11.7 g/dL (12.0-16.0)
[2021-09-10] MEDS: Magnesium Hydroxide LIQ 30 ML UDC PO SCH (20:33)
[2021-09-11] MEDS: Vancomycin 750 MG in NS 0.9% 250 ML IVPB SCH ×2 (03:53→15:33)
[2021-09-11] MEDS ORDERED: Flu vaccine *QUAD* 2021-22* 0.5 ML SYRINGE IM ONE (09:00)
[2021-09-11 10:20] LABS: Hematocrit 31 % (35-47); Hemoglobin 10.7 g/dL (12.0-16.0)
[2021-09-11 10:39] LABS: Calcium 8.6 mg/dL (8.6-10.3); Potassium 4.1 mmol/L (3.5-5.0)
[2021-09-11] MEDS: Cholecalciferol (VIT D3) 1,000 unit TAB PO SCH (10:47)
[2021-09-11] MEDS: Magnesium Hydroxide LIQ 30 ML UDC PO SCH ×2 (10:48→21:16)
[2021-09-11] MEDS: Nicotine PATCH 14 MG/24 HR PATCH TRANSDERM SCH (10:56)
[2021-09-11] MEDS: Enoxaparin 40 MG/0.4 ML SYR SUBCUT SCH (12:01)
[2021-09-12 07:47] LABS: ABS Monocytes 0.9 10^3/ul (0-0.8); ABS Neutrophils 4.9 10^3/ul (1.5-7.7); Eosinophil % 0.3 %; Hematocrit 27 % (35-47); Hemoglobin 9.3 g/dL (12.0-16.0); Lymphocyte % 14.1 %; Mean Corpuscular HGB Conc 35 g/dL (31-36); Mean Corpuscular Hemoglobin 37 pg (27-31); Mean Corpuscular Volume 104 fL (80-97); Mean Platelet Volume 6.7 fL (7.4-10.4); Platelet Count 149 10^3/uL (150-450); Red Blood Count 2.56 10^6 /uL (3.70-4.87); Red Cell Distribution Width 13 % (10-15); White Blood Count 6.8 10^3/uL (3.5-10.8)
[2021-09-12 08:00] LABS: Calcium 8.2 mg/dL (8.6-10.3); Magnesium 1.7 mg/dL (1.9-2.7); Potassium 4.1 mmol/L (3.5-5.0)
[2021-09-12] MEDS ORDERED: Magnesium Sulfate 2 gm BAG 2 GM/50 ML BAG IVPB ONE (09:08)
[2021-09-12] MEDS: Magnesium Hydroxide LIQ 30 ML UDC PO SCH (10:21)
[2021-09-12] MEDS: Cholecalciferol (VIT D3) 1,000 unit TAB PO SCH (10:24)
[2021-09-12] MEDS: Nicotine PATCH 14 MG/24 HR PATCH TRANSDERM SCH (10:25)
[2021-09-12] MEDS: Enoxaparin 40 MG/0.4 ML SYR SUBCUT SCH (11:29)
[2021-09-12 15:47] VITALS: BP 101/64
== END 2021-09-12 19:30 | disposition home or self-care (01) | DRG 308 ==
LOC: ED 00:43 → SUATTDRO 01:56 → SSU 01:56
PROVIDERS: ADMIT Internal Medicine; ATTEND Hospitalist

== ENCOUNTER 2021-09-19 18:38 | Inpatient (IN) ==
[2021-09-19] MEDS ORDERED: Albuterol HFA INHALER 8 gm MDI INH ONE (19:49)
[2021-09-19 20:45] LABS: ABS Basophils 0.1 10^3/ul (0-0.2); ABS Lymphocytes 0.6 10^3/ul (1.0-4.8); ABS Monocytes 1.3 10^3/ul (0-0.8); ABS Neutrophils 12.5 10^3/ul (1.5-7.7); Eosinophil % 0.1 %; Hematocrit 28 % (35-47); Lymphocyte % 4.2 %; Mean Corpuscular HGB Conc 35 g/dL (31-36); Mean Corpuscular Hemoglobin 35 pg (27-31); Mean Corpuscular Volume 101 fL (80-97); Mean Platelet Volume 6.6 fL (7.4-10.4); Platelet Count 464 10^3/uL (150-450); Red Blood Count 2.81 10^6 /uL (3.70-4.87); Red Cell Distribution Width 13 % (10-15); White Blood Count 14.6 10^3/uL (3.5-10.8)
[2021-09-19 20:58] LABS: Activated Partial Thrombo Time 28.5 seconds (26.0-38.0); INR 1.34 (0.86-1.15)
[2021-09-19 21:06] LABS: LDH 261 U/L (140-271)
[2021-09-19 21:07] LABS: ALT 26 U/L (7-52); AST 21 U/L (13-39); Albumin 3.8 g/dL (3.2-5.2); Albumin/Globulin Ratio 1.1 (1-3); Alkaline Phosphatase 92 U/L (35-149); Anion Gap 9 mmol/L (2-11); Blood Urea Nitrogen 5 mg/dL (6-24); C Reactive Protein 188.56 mg/L (<8.01); CO2 Carbon Dioxide 28 mmol/L (22-32); Calcium 9.2 mg/dL (8.6-10.3); Chloride 89 mmol/L (101-111); Globulin 3.4 g/dL (2-4); Glucose 117 mg/dL (70-100); Potassium 3.9 mmol/L (3.5-5.0); Sodium 126 mmol/L (135-145); Total Protein 7.2 g/dL (6.4-8.9)
[2021-09-19 21:13] LABS: Venous Bicarbonate HCO3 28.4 mmol/L (24-28)
[2021-09-19 21:20] LABS: Troponin I 0.03 ng/mL (<0.03)
[2021-09-19 21:26] LABS: Ferritin 212.5 ng/mL (11-307)
[2021-09-19 21:29] LABS: Influenza A Molecular Negative (Negative); Influenza B Molecular Negative (Negative)
[2021-09-19] MEDS ORDERED: Iohexol 350 (CONTRAST) 500 ML MDV IV ONE (22:11)
[2021-09-19] MEDS ORDERED: Diltiazem IV push/loading dose 5 MG/ML 5 ML vial (25 mg) IV SLOW PU ONE ×3 (22:13→23:32)
[2021-09-19] MEDS ORDERED: Vancomycin 1,000 MG in NS 0.9% 250 ml 250 ML IVPB ONE (23:32)
[2021-09-19] MEDS ORDERED: Lactated Ringers 1000 ml BAG 1,000 ML IV ONE (23:32)
[2021-09-19] MEDS ORDERED: Diltiazem IV BAG D5W Premix 125 MG/125 ML BAG IV SCH (23:45)
[2021-09-19] MEDS ORDERED: Vancomycin per Pharmacy 1 EA NOTE FOLLOW UP SCH (23:45)
[2021-09-19] MEDS ORDERED: Cefepime 2 GM IV - ED ONCE IV ONE (23:50)
[2021-09-19] MEDS: methylPREDNISolone SOD 40 mg/ml 1 ml VIAL IV SCH (23:58)
[2021-09-20 00:52] LABS: Rapid COVID-19 Molecular Undetected (Undetected)
[2021-09-20] MEDS: Enoxaparin 60 MG/0.6 ML SYR SUBCUT SCH ×3 (01:44→20:27)
[2021-09-20] MEDS: Levalbuterol HFA INHALER MDI INH SCH ×5 (03:12→20:20)
[2021-09-20 03:53] LABS: Troponin I 0.03 ng/mL (<0.03)
[2021-09-20 06:15] LABS: ABS Lymphocytes 0.3 10^3/ul (1.0-4.8); ABS Monocytes 0.2 10^3/ul (0-0.8); ABS Neutrophils 11.2 10^3/ul (1.5-7.7); Hematocrit 27 % (35-47); Hemoglobin 9.1 g/dL (12.0-16.0); Lymphocyte % 2.6 %; Mean Corpuscular HGB Conc 34 g/dL (31-36); Mean Corpuscular Hemoglobin 35 pg (27-31); Mean Corpuscular Volume 102 fL (80-97); Mean Platelet Volume 6.5 fL (7.4-10.4); Platelet Count 455 10^3/uL (150-450); Red Blood Count 2.62 10^6 /uL (3.70-4.87); Red Cell Distribution Width 13 % (10-15); White Blood Count 11.6 10^3/uL (3.5-10.8)
[2021-09-20 06:24] LABS: INR 1.46 (0.86-1.15)
[2021-09-20 06:38] LABS: Anion Gap 6 mmol/L (2-11); Blood Urea Nitrogen 5 mg/dL (6-24); CO2 Carbon Dioxide 31 mmol/L (22-32); Calcium 8.9 mg/dL (8.6-10.3); Chloride 94 mmol/L (101-111); Glucose 171 mg/dL (70-100); Magnesium 1.8 mg/dL (1.9-2.7); Potassium 4.1 mmol/L (3.5-5.0); Sodium 131 mmol/L (135-145)
[2021-09-20 06:53] LABS: TSH Ultra Thyroid Stim Horm 0.35 mcIU/mL (0.34-5.60)
[2021-09-20] MEDS: methylPREDNISolone SOD 40 mg/ml 1 ml VIAL IV SCH ×2 (08:39→20:28)
[2021-09-20] MEDS ORDERED: Mometasone/Formoter 200/5 MDI INH SCH ×2 (09:00→15:00)
[2021-09-20] MEDS ORDERED: Cholecalciferol (VIT D3) 1,000 unit TAB PO SCH (09:00)
[2021-09-20] MEDS: Vancomycin 750 MG in NS 0.9% 250 ML IVPB SCH ×2 (10:12→17:08)
[2021-09-20] MEDS: Magnesium Sulfate 2 gm BAG 2 GM/50 ML BAG IVPB ONE ×2 (10:53→12:23)
[2021-09-20 11:06] LABS: Cholesterol 120 mg/dL; HDL Cholesterol 74.1 mg/dL; LDL Cholesterol 38 mg/dL; Triglycerides 41 mg/dL
[2021-09-20] MEDS ORDERED: Perflutren Lipid Microsphere 3 ML VIAL ONE (13:19)
[2021-09-20] MEDS: Cholecalciferol (VIT D3) 1,000 unit TAB PO SCH (15:40)
[2021-09-20] MEDS: Cefepime 2 GM in Dextrose 2 GM/50 ML BAG IV SCH (15:40)
[2021-09-20] MEDS: Mometasone 220 MCG MDI INH SCH (15:44)
[2021-09-20] MEDS: Tiotropium Brom/Olodaterol MDI INH SCH (15:44)
[2021-09-20 17:59] LABS: Total Iron Binding Capacity 298 mcg/dL (250-450); Transferrin 213 mg/dL (203-362)
[2021-09-20 18:00] LABS: % Iron Saturation 7 % (15-55); Iron < 20 ug/dL (50-212); Unsaturated Iron Binding < 283 ug/dL
[2021-09-20] MEDS ORDERED: Levalbuterol HFA INHALER MDI INH PRN (23:01)
[2021-09-21] MEDS: Vancomycin 750 MG in NS 0.9% 250 ML IVPB SCH ×2 (00:15→08:43)
[2021-09-21] MEDS: Levalbuterol HFA INHALER MDI INH SCH (01:33)
[2021-09-21] MEDS: Cefepime 2 GM in Dextrose 2 GM/50 ML BAG IV SCH ×2 (02:45→13:52)
[2021-09-21] MEDS ORDERED: Vancomycin Trough Check NOTE FOLLOW UP ONE (07:30)
[2021-09-21 07:46] LABS: ABS Lymphocytes 0.7 10^3/ul (1.0-4.8); ABS Monocytes 0.5 10^3/ul (0-0.8); ABS Neutrophils 13.6 10^3/ul (1.5-7.7); Hematocrit 27 % (35-47); Hemoglobin 9.3 g/dL (12.0-16.0); Lymphocyte % 4.5 %; Mean Corpuscular HGB Conc 35 g/dL (31-36); Mean Corpuscular Hemoglobin 36 pg (27-31); Mean Corpuscular Volume 103 fL (80-97); Mean Platelet Volume 6.5 fL (7.4-10.4); Platelet Count 533 10^3/uL (150-450); Red Blood Count 2.61 10^6 /uL (3.70-4.87); Red Cell Distribution Width 13 % (10-15); White Blood Count 14.9 10^3/uL (3.5-10.8)
[2021-09-21 08:04] LABS: C Reactive Protein 112.35 mg/L (<8.01); Calcium 8.5 mg/dL (8.6-10.3)
[2021-09-21] MEDS: Mometasone 220 MCG MDI INH SCH ×2 (08:33→19:58)
[2021-09-21] MEDS: Tiotropium Brom/Olodaterol MDI INH SCH (08:37)
[2021-09-21] MEDS: Cholecalciferol (VIT D3) 1,000 unit TAB PO SCH (08:44)
[2021-09-21] MEDS: Enoxaparin 60 MG/0.6 ML SYR SUBCUT SCH (08:46)
[2021-09-21 11:47] VITALS: BP 130/57
== END 2021-09-21 18:00 | disposition home or self-care (01) | DRG 720 ==
LOC: ED 18:38 → SUATTDRO 23:24 → EDHOLD 23:24 → MED 09-20 18:47
PROVIDERS: ADMIT Hospitalist; ATTEND Student in an Organized Health Care Education/Training Program